=== PATIENT | male | born 1935 | race African-American/Black ===

== ENCOUNTER 2018-05-11 18:54 | Emergency (ER) | payer MEDICARE ==
[~2018-05-11] VITALS: Ht 170.2 cm; Wt 74.2 kg
[~2018-05-11 18:54] MED LIST: AMLO-150 PO; ASPI325T17 PO; ATEN100T PO; CLIN300C8 PO; DUTA0.5C PO; GINK120C PO; HYDR-3237 PO; HYDR-3240 PO; HYDR12.517 PO; LISI40TA PO; LOVA40TA2 PO; METH750T87 PO; MULT-257 PO; NAPR220T77 PO; TERA5CAP3 PO; TIZA4CAP2 PO; VANC250C3 PO; ZINC50TA44 PO
[2018-05-11] MEDS ORDERED: IBUPROFEN 100 MG/5 ML UDC ONE (19:03)
[2018-05-11] MEDS ORDERED: ACETAMINOPHEN 650 MG/20.3 ML UDC ONE (19:03)
[2018-05-11 19:07] VITALS: BP 116/31
== END 2018-05-11 22:24 | disposition home or self-care (01) ==
LOC: ED 22:18 → MERGE 22:18 → ED 22:24
DX: J20.8 Acute bronchitis due to other specified organisms (principal); B97.89 Other viral agents as the cause of diseases classified elsewhere; K22.8 Other specified diseases of esophagus
CPT/HCPCS: 71046; 74220; 99283

== ENCOUNTER 2018-05-13 08:17 | Inpatient (IN) | payer MEDICARE ==
[~2018-05-13] VITALS: Ht 170.2 cm; Wt 70.6 kg
--- NOTE | 2018-05-13 08:41 | NUR ---
W[employer] BR[employer]KER: PT TO ROOM FROM SUSAN SALINAS.
--- NOTE | 2018-05-13 08:58 | NUR ---
PT. IS A & O X 4 WITH C/O INABILITY TO SWALLOW FOOD SINCE FRIDAY. PT. WAS SEEN AND ADMISSION WAS RECOMMENDED. PT. LEFT AND RETURNS TODAY FOR FURTHER EVAALUATION AND ADMISSION. PT. IS ABLE TO CONTROL HIS SALIVA AND STATES HE CAN DRINK WATER WELL TAKE HIS MEDICATION. PT.'S LUNGS ARE CTA. MM ARE PINK AND MOIST WITH PULSES +2 THROUGHOUT. PT. HAS THE PULSE OX AND BP CUFF ON. PT.'S ABD. IS SOFT AND ROUND WITH BS + X 4 QUADS. LABS WERE DRAWN AND SENT. SIDERAILS REMAIN UP X [address] WITH THE CALL LIGHT IN PLACE.
[2018-05-13 09:11] LABS: BASOPHILS # (AUTO) 0.01 x10^3/uL (0-0.1); BASOPHILS % (AUTO) 0 % (0-1); EOSINOPHILS % (AUTO) 1 % (1-7); LYMPHOCYTES # (AUTO) 1.07 x10^3/uL (1-3.4); LYMPHOCYTES % (AUTO) 16 % (22-44); MD NO; MEAN CORPUSCULAR HEMOGLOBIN 28.9 pg (27.5-34.5); MEAN CORPUSCULAR HGB CONC 32.9 g/dL (33.2-36.2); MEAN CORPUSCULAR VOLUME 87.7 fL (81-97); MEAN PLATELET VOLUME 9.1 fL (7.4-10.4); MONOCYTES # (AUTO) 0.38 x10^3/uL (0.2-0.8); MONOCYTES % (AUTO) 6 % (2-9); NEUTROPHILS # (AUTO) 5.26 x10^3/uL (1.8-6.8); NEUTROPHILS % (AUTO) 77 % (42-75); PLATELET COUNT 145 x10^3/uL (130-400); RED CELL DISTRIBUTION WIDTH 16.2 % (9.4-14.8)
[2018-05-13 09:22] LABS: ALANINE AMINOTRANSFERASE 26 U/L (12-78); ALBUMIN 3.7 g/dL (3.4-5.0); ANION GAP 8 mmol/L (5-15); CALCIUM 8.7 mg/dL (8.5-10.1); CHLORIDE 108 mmol/L (98-107); CREATININE 1.01 mg/dL (0.7-1.3)
[2018-05-13 09:24] LABS: ALKALINE PHOSPHATASE 81 U/L (45-117); BILIRUBIN,TOTAL 1.1 mg/dL (0.2-1.0); TOTAL PROTEIN 7.7 g/dL (6.4-8.2)
--- NOTE | 2018-05-13 09:53 | NUR ---
PT REPORT FROM CHITO DONOVAN. PT CARE TO BE ASSUMED.
[2018-05-13] MEDS ORDERED: DUTA0.5C PO (10:51)
--- NOTE | 2018-05-13 10:54 | NUR ---
DR RODRIGUES BS
--- NOTE | 2018-05-13 11:51 | NUR ---
PT REPORT TO CHITO SANTANA FOR ROOM [id number].
[2018-05-13 12:49] VITALS: BP 161/69
[2018-05-13] MEDS ORDERED: ONDANSETRON ODT 4 MG PO PRN (17:30)
[2018-05-13] MEDS ORDERED: ENALAPRILAT 1.25 MG/ML, 2ML IVPush PRN (17:30)
[2018-05-13] MEDS ORDERED: hydrALAzine 20 MG/ML, 1ML IVPush PRN (17:30)
[2018-05-13] MEDS ORDERED: OXYcodone IR 5MG TABLET PO PRN (17:30)
[2018-05-13] MEDS ORDERED: PROMETHAZINE 25 MG/ML, 1ML IM PRN (17:30)
[2018-05-13] MEDS ORDERED: LABETALOL 5MG/ML, 20ML IVPush PRN (17:30)
[2018-05-13] MEDS ORDERED: DOCUSATE 100 MG CAPSULE PO PRN (17:30)
[2018-05-13] MEDS ORDERED: GUAIFENESIN/DM 200-20MG, 10ML UDC PO PRN (17:30)
[2018-05-13] MEDS ORDERED: BISACODYL 10 MG SUPP PR PRN (17:30)
[2018-05-13] MEDS ORDERED: ACETAMINOPHEN 325 MG TABLET PO PRN (17:30)
[2018-05-13] MEDS ORDERED: ONDANSETRON 2MG/ML, 2ML IVPush PRN (17:30)
[2018-05-13] MEDS ORDERED: POLYETHYLENE GLYCOL 17 GM PACKET PO PRN (17:30)
[2018-05-13] MEDS: D5%-0.9% NACL 1,000 ML IV SCH (17:49)
[2018-05-13 18:03] LABS: FREE T4 (FREE THYROXINE) 1.54 ng/dL (0.76-1.46); THYROID STIMULATING HORMONE 1.26 mIU/L (0.358-3.740)
[2018-05-13 18:35] LABS: HEMOGLOBIN A1C 5.4 % (4.2-6.3)
[2018-05-13 18:45] VITALS: BP 145/78
[2018-05-13 20:13] LABS: CLOSTRIDIUM DIFFICILE TOXIN NEGATIVE (Negative)
[2018-05-13 20:23] LABS: CLOSTRIDIUM DIFFICILE ANTIGEN POSITIVE
[2018-05-13] MEDS: VANCOMYCIN 50 MG/ML ORAL SUSP PO SCH (22:33)
[2018-05-14] VITALS (7 sets, daily range): BP systolic 148–181; BP diastolic 59–78
[2018-05-14] MEDS: D5%-0.9% NACL 1,000 ML IV SCH ×3 (01:40→18:24)
[2018-05-14] MEDS: VANCOMYCIN 50 MG/ML ORAL SUSP PO SCH ×4 (04:27→22:03)
[2018-05-14 06:09] LABS: BASOPHILS # (AUTO) 0.01 x10^3/uL (0-0.1); BASOPHILS % (AUTO) 0 % (0-1); EOSINOPHILS # (AUTO) 0.18 x10^3/uL (0-0.4); EOSINOPHILS % (AUTO) 3 % (1-7); LYMPHOCYTES # (AUTO) 1.07 x10^3/uL (1-3.4); LYMPHOCYTES % (AUTO) 19 % (22-44); MD NO; MEAN CORPUSCULAR HEMOGLOBIN 29.1 pg (27.5-34.5); MEAN CORPUSCULAR HGB CONC 33.2 g/dL (33.2-36.2); MEAN CORPUSCULAR VOLUME 87.8 fL (81-97); MEAN PLATELET VOLUME 9.5 fL (7.4-10.4); MONOCYTES # (AUTO) 0.45 x10^3/uL (0.2-0.8); MONOCYTES % (AUTO) 8 % (2-9); NEUTROPHILS # (AUTO) 3.81 x10^3/uL (1.8-6.8); NEUTROPHILS % (AUTO) 69 % (42-75); PLATELET COUNT 145 x10^3/uL (130-400); RED BLOOD COUNT 5.28 x10^6/uL (4.38-5.82)
[2018-05-14 06:21] LABS: ALBUMIN 3.3 g/dL (3.4-5.0); ANION GAP 4 mmol/L (5-15); CALCIUM 7.9 mg/dL (8.5-10.1); CHLORIDE 113 mmol/L (98-107)
[2018-05-14 06:24] LABS: ALANINE AMINOTRANSFERASE 22 U/L (12-78); ALKALINE PHOSPHATASE 72 U/L (45-117); CHOL/HDL RATIO 2.8; CHOLESTEROL, TOTAL 191 mg/dL (140-239); CREATININE 0.95 mg/dL (0.7-1.3); HDL CHOL % 36 % (26-37); HDL CHOLESTEROL (DIRECT) 68 mg/dL (40-60); LDL CHOLESTEROL,CALCULATED 112 mg/dL (54-169); LDL/HDL RATIO 1.6 (0.5-3.0); TOTAL PROTEIN 6.8 g/dL (6.4-8.2); TRIGLYCERIDES 56 mg/dL (50-200); VLDL CHOLESTEROL 11 mg/dL (0-25)
[2018-05-14] MEDS ORDERED: PROPOFOL 10 MG/ML, 20ML ONE (08:31)
[2018-05-14] MEDS ORDERED: MAALOX/HYOSCYAMINE/LIDOCAINE 45 ML BTL PO PRN (09:00)
[2018-05-14] MEDS ORDERED: ATENOLOL 100 MG TABLET PO SCH (09:00)
[2018-05-14] MEDS ORDERED: HYDROCHLOROTHIAZIDE 12.5 MG CAPSULE PO SCH (09:00)
[2018-05-14] MEDS: LISINOPRIL 20 MG TABLET PO SCH (10:19)
[2018-05-15 00:47] VITALS: BP_SYST 136; BP_SYST 163; BP_DIAS 70
[2018-05-15] MEDS: D5%-0.9% NACL 1,000 ML IV SCH ×2 (02:12→09:31)
[2018-05-15] MEDS: VANCOMYCIN 50 MG/ML ORAL SUSP PO SCH ×4 (04:21→22:16)
[2018-05-15 06:50] VITALS: BP 167/69
[2018-05-15] MEDS: CARVEDILOL 12.5 MG TABLET PO SCH ×2 (10:04→18:33)
[2018-05-15] MEDS: LISINOPRIL 20 MG TABLET PO SCH (10:04)
[2018-05-15] MEDS: HYDROCHLOROTHIAZIDE 25 MG TABLET PO SCH (10:04)
[2018-05-15 15:06] VITALS: BP 65/66
[2018-05-15] MEDS: BENZONATATE 100 MG CAPSULE PO SCH ×2 (15:57→21:00)
[2018-05-15 15:58] VITALS: BP 149/67
[2018-05-15 19:43] VITALS: BP 151/74
[2018-05-16 00:27] VITALS: BP 155/72
[2018-05-16] MEDS: VANCOMYCIN 50 MG/ML ORAL SUSP PO SCH ×2 (04:38→10:37)
[2018-05-16 05:42] LABS: BASOPHILS # (AUTO) 0.04 x10^3/uL (0-0.1); BASOPHILS % (AUTO) 1 % (0-1); EOSINOPHILS # (AUTO) 0.18 x10^3/uL (0-0.4); EOSINOPHILS % (AUTO) 5 % (1-7); LYMPHOCYTES # (AUTO) 0.94 x10^3/uL (1-3.4); LYMPHOCYTES % (AUTO) 26 % (22-44); MD NO; MEAN CORPUSCULAR HEMOGLOBIN 29.5 pg (27.5-34.5); MEAN CORPUSCULAR HGB CONC 33.6 g/dL (33.2-36.2); MEAN CORPUSCULAR VOLUME 87.6 fL (81-97); MEAN PLATELET VOLUME 8.9 fL (7.4-10.4); MONOCYTES % (AUTO) 14 % (2-9); NEUTROPHILS % (AUTO) 53 % (42-75); PLATELET COUNT 136 x10^3/uL (130-400); RED CELL DISTRIBUTION WIDTH 15.7 % (9.4-14.8)
[2018-05-16 05:46] LABS: ALANINE AMINOTRANSFERASE 27 U/L (12-78); ALBUMIN 3.2 g/dL (3.4-5.0); ANION GAP 6 mmol/L (5-15); CALCIUM 8.3 mg/dL (8.5-10.1); CHLORIDE 110 mmol/L (98-107); CREATININE 0.93 mg/dL (0.7-1.3)
[2018-05-16 05:49] LABS: ALKALINE PHOSPHATASE 67 U/L (45-117); BILIRUBIN,TOTAL 0.8 mg/dL (0.2-1.0); TOTAL PROTEIN 6.6 g/dL (6.4-8.2)
[2018-05-16] MEDS: CARVEDILOL 12.5 MG TABLET PO SCH (06:04)
[2018-05-16] MEDS ORDERED: POTASSIUM CHLORIDE 20 MEQ TAB.ER.PRT PO ONE ×2 (06:30→10:30)
[2018-05-16 07:39] VITALS: BP 149/69
[2018-05-16] MEDS: HYDROCHLOROTHIAZIDE 25 MG TABLET PO SCH (10:35)
[2018-05-16] MEDS: BENZONATATE 100 MG CAPSULE PO SCH (10:35)
[2018-05-16] MEDS: LISINOPRIL 20 MG TABLET PO SCH (10:36)
[2018-05-16] MEDS ORDERED: CARV12.543 PO (11:11)
[2018-05-16] MEDS ORDERED: VANC1VIA3 PO (11:11)
[2018-05-16] MEDS ORDERED: HYDR25TA6 PO (11:11)
== END 2018-05-16 13:05 | disposition home or self-care (01) | DRG 155 ==
LOC: ED 09:30 → 3NE 11:05
PROVIDERS: ADMIT Internal Medicine; ATTEND Internal Medicine
PROC: BD11YZZ Fluoroscopy of Esophagus using Other Contrast (ICD-10-PCS; 2018-05-13)
PROC: 0DB68ZX Excision of Stomach, Via Natural or Artificial Opening Endoscopic, Diagnostic (ICD-10-PCS; principal; 2018-05-14 08:30)
DX: J39.2 Other diseases of pharynx (principal); A04.72 Enterocolitis due to Clostridium difficile, not specified as recurrent; K26.9 Duodenal ulcer, unspecified as acute or chronic, without hemorrhage or perforation; M54.30 Sciatica, unspecified side; R01.0 Benign and innocent cardiac murmurs; D63.1 Anemia in chronic kidney disease; E78.5 Hyperlipidemia, unspecified; N18.9 Chronic kidney disease, unspecified; I12.9 Hypertensive chronic kidney disease with stage 1 through stage 4 chronic kidney disease, or unspecified chronic kidney disease; I25.2 Old myocardial infarction; K22.8 Other specified diseases of esophagus; K29.50 Unspecified chronic gastritis without bleeding; L89.90 Pressure ulcer of unspecified site, unspecified stage; N40.0 Benign prostatic hyperplasia without lower urinary tract symptoms; Z87.891 Personal history of nicotine dependence; Z98.1 Arthrodesis status
CPT/HCPCS: 36415; 74220; 74230; 80053; 80061; 83036; 83690; 83735; 84100; 84439; 84443; 85014; 85018; 85025; 87324; 87493; 88305; G0378; J2704; J3370; J7042

== ENCOUNTER 2020-08-09 10:12 | Outpatient (CLI) | payer MEDICARE ==
[~2020-08-09 10:12] MED LIST changes: +CARV12.543 PO; -CLIN300C8 PO; +CLIN300C9 PO; +HYDR-2214 PO; -HYDR-3240 PO; +HYDR25TA6 PO; -LISI40TA PO; +LISI40TA9 PO; +VANC1VIA36 PO
[2020-08-09] MEDS ORDERED: GADOTERATE 10 MMOL/20ML SYR ONE (13:15)
== END 2020-08-09 23:59 | disposition home or self-care (01) ==
LOC: CFH 10:12
PROVIDERS: ATTEND Psychiatry & Neurology Neurology
DX: G81.90 Hemiplegia, unspecified affecting unspecified side (principal); G93.89 Other specified disorders of brain
CPT/HCPCS: 70553; A9575